=== PATIENT | male | born 1940 | race Caucasian/White ===

== ENCOUNTER → 2017-02-09 | Outpatient (CLI) | payer MEDICARE | LOC: CFH 11:40 | PROVIDERS: ATTEND Internal Medicine | DX: R53.83 Other fatigue (principal); R50.9 Fever, unspecified; M62.81 Muscle weakness (generalized); R63.4 Abnormal weight loss; R97.8 Other abnormal tumor markers | CPT/HCPCS: 71020 ==

== ENCOUNTER → 2017-02-23 | Outpatient (CLI) | payer MEDICARE | END | disposition home or self-care (01) | LOC: CFH 08:47 | PROVIDERS: ATTEND Internal Medicine | DX: E10.21 Type 1 diabetes mellitus with diabetic nephropathy (principal); E10.42 Type 1 diabetes mellitus with diabetic polyneuropathy; E10.65 Type 1 diabetes mellitus with hyperglycemia; M62.81 Muscle weakness (generalized); R97.8 Other abnormal tumor markers; E03.9 Hypothyroidism, unspecified; R50.9 Fever, unspecified; Z85.07 Personal history of malignant neoplasm of pancreas | CPT/HCPCS: 76700 ==

== ENCOUNTER → 2017-03-05 | Outpatient (CLI) | payer MEDICARE | LOC: PETCFH 08:59 | PROVIDERS: ATTEND Internal Medicine | DX: Z02.9 Encounter for administrative examinations, unspecified (principal) ==

== ENCOUNTER → 2017-03-05 | Outpatient (CLI) | payer MEDICARE | END | disposition home or self-care (01) | LOC: CFH 08:56 | PROVIDERS: ATTEND Internal Medicine | DX: R16.1 Splenomegaly, not elsewhere classified (principal); R91.1 Solitary pulmonary nodule; R53.83 Other fatigue; R79.89 Other specified abnormal findings of blood chemistry; Z85.07 Personal history of malignant neoplasm of pancreas | CPT/HCPCS: 74176 ==

== ENCOUNTER → 2017-03-12 | Outpatient (CLI) | payer MEDICARE ==
[~2017-03-12] MED LIST: ALLO100T30 PO; ERGO500017 PO; LEVO75TA5 PO; OMEP-110 PO; POTA10TA17 PO; SODI650T PO; TAMS0.4C2 PO; VIT1CAPS16 PO; VIT1TABL32 PO
== END | disposition home or self-care (01) ==
LOC: PETCFH 12:34
PROVIDERS: ATTEND Internal Medicine
DX: Z02.9 Encounter for administrative examinations, unspecified (principal)

== ENCOUNTER 2017-03-19 09:47 | Inpatient (IN) | payer MEDICARE ==
[~2017-03-19] VITALS: Ht 185.4 cm; Wt 68.2 kg
[2017-03-19] MEDS ORDERED: SODIUM CHLORIDE 0.9% 1,000ML IVBOLUS ONE (10:30)
[2017-03-19 10:43] LABS: BASOPHILS # (AUTO) 0.03 x10^3/uL (0-0.1); BASOPHILS % (AUTO) 1 % (0-1); EOSINOPHILS # (AUTO) 0.06 x10^3/uL (0-0.4); EOSINOPHILS % (AUTO) 1 % (1-7); LYMPHOCYTES # (AUTO) 0.62 x10^3/uL (1-3.4); LYMPHOCYTES % (AUTO) 11 % (22-44); MD NO; MEAN CORPUSCULAR HEMOGLOBIN 29.2 pg (27.5-34.5); MEAN CORPUSCULAR HGB CONC 32.6 g/dL (33.2-36.2); MEAN CORPUSCULAR VOLUME 89.6 fL (81-97); MEAN PLATELET VOLUME 8.4 fL (7.4-10.4); MONOCYTES # (AUTO) 0.36 x10^3/uL (0.2-0.8); MONOCYTES % (AUTO) 6 % (2-9); NEUTROPHILS # (AUTO) 4.78 x10^3/uL (1.8-6.8); NEUTROPHILS % (AUTO) 82 % (42-75); PLATELET COUNT 173 x10^3/uL (130-400); RED BLOOD COUNT 3.05 x10^6/uL (4.38-5.82); RED CELL DISTRIBUTION WIDTH 14.3 % (9.4-14.8)
[2017-03-19 10:55] LABS: ALANINE AMINOTRANSFERASE 19 U/L (12-78); ALBUMIN 1.8 g/dL (3.4-5.0); ANION GAP 9 mmol/L (5-15); CALCIUM 7.2 mg/dL (8.5-10.1); CHLORIDE 109 mmol/L (98-107); CREATININE 1.78 mg/dL (0.7-1.3)
[2017-03-19 10:58] LABS: ALKALINE PHOSPHATASE 96 U/L (45-117); BILIRUBIN,TOTAL 0.6 mg/dL (0.2-1.0); TOTAL PROTEIN 5.8 g/dL (6.4-8.2)
[2017-03-19 11:00] LABS: TROPONIN I < 0.015 ng/mL (0.000-0.045)
[2017-03-19] MEDS ORDERED: LEVO75TA5 PO (12:34)
[2017-03-19] MEDS ORDERED: ALLO100T30 PO (12:34)
[2017-03-19] MEDS ORDERED: TAMS0.4C2 PO (12:34)
[2017-03-19] MEDS ORDERED: ERGO500017 PO (12:34)
[2017-03-19] MEDS ORDERED: OMEP-110 PO (12:34)
[2017-03-19] MEDS ORDERED: POTA10TA17 PO (12:34)
[2017-03-19] MEDS ORDERED: VIT1CAPS16 PO (12:34)
[2017-03-19] MEDS ORDERED: VIT1TABL32 PO (12:34)
[2017-03-19] MEDS ORDERED: SODI650T PO (12:34)
[2017-03-19] MEDS ORDERED: CEFTRIAXONE PMX 1GM/50ML 50 ML IVPB ONE (14:00)
[2017-03-19] MEDS ORDERED: CEFTRIAXONE PMX 1GM/50ML 50 ML ONE (14:05)
[2017-03-19] MEDS ORDERED: ENOXAPARIN 40 MG/0.4 ML SQ SCH (14:30)
[2017-03-19] MEDS ORDERED: ONDANSETRON 2MG/ML, 2ML IVPush PRN (14:30)
[2017-03-19] MEDS ORDERED: ERGOCALCIFEROL 50,000 UNIT CAPSULE PO SCH (14:30)
[2017-03-19] MEDS ORDERED: ACETAMINOPHEN 325 MG TABLET PO PRN (14:30)
[2017-03-19] MEDS ORDERED: LACTATED RINGERS 1,000 ML IV SCH (14:30)
[2017-03-19] MEDS: LACTATED RINGERS 1,000 ML IV SCH (16:37)
[2017-03-19 20:00] VITALS: BP 106/62
[2017-03-19] MEDS: SODIUM BICARBONATE 650 MG TABLET PO SCH (21:00)
[2017-03-20 00:52] VITALS: BP 106/62
[2017-03-20] MEDS: SODIUM BICARBONATE 650 MG TABLET PO SCH ×4 (01:08→20:55)
[2017-03-20 01:23] LABS: MICROSCOPIC AUTO
[2017-03-20 01:26] LABS: CULTURE INDICATED? YES
[2017-03-20 01:31] VITALS: BP 114/68
[2017-03-20] MEDS: LACTATED RINGERS 1,000 ML IV SCH ×2 (04:02→20:56)
[2017-03-20 04:47] LABS: ALBUMIN 1.5 g/dL (3.4-5.0); ANION GAP 7 mmol/L (5-15); CALCIUM 6.8 mg/dL (8.5-10.1); CHLORIDE 110 mmol/L (98-107)
[2017-03-20 04:49] LABS: BASOPHILS # (AUTO) 0.01 x10^3/uL (0-0.1); BASOPHILS % (AUTO) 0 % (0-1); EOSINOPHILS # (AUTO) 0.07 x10^3/uL (0-0.4); EOSINOPHILS % (AUTO) 1 % (1-7); LYMPHOCYTES # (AUTO) 0.88 x10^3/uL (1-3.4); LYMPHOCYTES % (AUTO) 15 % (22-44); MD NO; MEAN CORPUSCULAR HEMOGLOBIN 29.5 pg (27.5-34.5); MEAN CORPUSCULAR VOLUME 89.3 fL (81-97); MEAN PLATELET VOLUME 8.4 fL (7.4-10.4); MONOCYTES # (AUTO) 0.34 x10^3/uL (0.2-0.8); MONOCYTES % (AUTO) 6 % (2-9); NEUTROPHILS % (AUTO) 78 % (42-75); PLATELET COUNT 160 x10^3/uL (130-400); RED BLOOD COUNT 2.63 x10^6/uL (4.38-5.82); RED CELL DISTRIBUTION WIDTH 14.6 % (9.4-14.8)
[2017-03-20 04:51] LABS: ALANINE AMINOTRANSFERASE 13 U/L (12-78); ALKALINE PHOSPHATASE 84 U/L (45-117); BILIRUBIN,TOTAL 0.4 mg/dL (0.2-1.0); CREATININE 1.64 mg/dL (0.7-1.3); TOTAL PROTEIN 4.9 g/dL (6.4-8.2)
[2017-03-20] MEDS ORDERED: SODIUM PHOSPHATE 20 MMOL in SODIUM CHLORIDE 0.9% 500 ML IV ONE (06:30)
[2017-03-20] MEDS ORDERED: MAGNESIUM SULFATE PMX 2GM/50ML 50 ML IV ONE (06:30)
[2017-03-20] MEDS: LEVOTHYROXINE 75 MCG TABLET PO SCH (06:31)
[2017-03-20 06:53] LABS: % IRON SATURATION 17 % (20-55); IRON LEVEL 15 mcg/dL (65-175); TOTAL IRON BINDING CAPACITY 88 mcg/dL (250-450)
[2017-03-20] MEDS ORDERED: INSULIN LISPRO 100 UNITS/ML, PEN SQ-INSULIN SCH ×2 (07:00)
[2017-03-20] MEDS: AMPICILLIN/SULBACTAM 3 GM in SODIUM CHLORIDE 0.9% 100 ML IV SCH ×3 (08:03→22:41)
[2017-03-20 08:24] VITALS: BP 104/61
[2017-03-20] MEDS ORDERED: [UNRECOGNIZED DRUG - OTHER] PO SCH (09:00)
[2017-03-20] MEDS ORDERED: ZNOX PO SCH (09:00)
[2017-03-20] MEDS ORDERED: VITE AC PO SCH (09:00)
[2017-03-20] MEDS ORDERED: VIT C PO SCH (09:00)
[2017-03-20] MEDS ORDERED: COPPER PO SCH (09:00)
[2017-03-20] MEDS ORDERED: LUT PO SCH (09:00)
[2017-03-20] MEDS: ALLOPURINOL 100 MG TABLET PO SCH (09:22)
[2017-03-20] MEDS: MULTIVITAMINS/MINERALS TABLET PO SCH (09:22)
[2017-03-20] MEDS: OMEPRAZOLE 20 MG CAPSULE.DR PO SCH (09:22)
[2017-03-20] MEDS: TAMSULOSIN 0.4 MG CAP.ER.24H PO SCH (09:22)
[2017-03-20] MEDS: INSULIN LISPRO 100 UNITS/ML, PEN SQ-INSULIN SCH ×4 (09:28→21:00)
[2017-03-20] MEDS: IRON SUCROSE COMPLEX 100MG/5ML IV SCH (11:10)
[2017-03-20] MEDS: ENOXAPARIN 40 MG/0.4 ML SQ SCH (15:05)
[2017-03-20 17:12] VITALS: BP 106/58
[2017-03-20 19:58] VITALS: BP 95/59
[2017-03-20] MEDS: INSULIN GLARGINE 100 UNITS/ML, PEN SQ-INSULIN SCH (21:00)
[2017-03-21 01:05] VITALS: BP 107/61
[2017-03-21 05:23] LABS: BASOPHILS # (AUTO) 0.02 x10^3/uL (0-0.1); BASOPHILS % (AUTO) 0 % (0-1); EOSINOPHILS # (AUTO) 0.07 x10^3/uL (0-0.4); EOSINOPHILS % (AUTO) 1 % (1-7); LYMPHOCYTES # (AUTO) 0.75 x10^3/uL (1-3.4); LYMPHOCYTES % (AUTO) 11 % (22-44); MD NO; MEAN CORPUSCULAR HEMOGLOBIN 29.4 pg (27.5-34.5); MEAN CORPUSCULAR HGB CONC 32.9 g/dL (33.2-36.2); MEAN CORPUSCULAR VOLUME 89.3 fL (81-97); MEAN PLATELET VOLUME 8.3 fL (7.4-10.4); MONOCYTES # (AUTO) 0.36 x10^3/uL (0.2-0.8); MONOCYTES % (AUTO) 5 % (2-9); NEUTROPHILS # (AUTO) 5.51 x10^3/uL (1.8-6.8); NEUTROPHILS % (AUTO) 82 % (42-75); PLATELET COUNT 166 x10^3/uL (130-400); RED BLOOD COUNT 2.76 x10^6/uL (4.38-5.82); RED CELL DISTRIBUTION WIDTH 14.6 % (9.4-14.8)
[2017-03-21 05:32] LABS: ANION GAP 8 mmol/L (5-15); CALCIUM 7.1 mg/dL (8.5-10.1); CHLORIDE 111 mmol/L (98-107)
[2017-03-21 05:33] LABS: CREATININE 1.43 mg/dL (0.7-1.3)
[2017-03-21] MEDS: AMPICILLIN/SULBACTAM 3 GM in SODIUM CHLORIDE 0.9% 100 ML IV SCH ×2 (06:09→14:30)
[2017-03-21] MEDS: LEVOTHYROXINE 75 MCG TABLET PO SCH (06:09)
[2017-03-21] MEDS: LACTATED RINGERS 1,000 ML IV SCH ×2 (06:09→14:30)
[2017-03-21] MEDS: INSULIN LISPRO 100 UNITS/ML, PEN SQ-INSULIN SCH ×2 (07:00→11:00)
[2017-03-21] MEDS: SODIUM BICARBONATE 650 MG TABLET PO SCH (08:31)
[2017-03-21] MEDS: ALLOPURINOL 100 MG TABLET PO SCH (08:31)
[2017-03-21] MEDS: TAMSULOSIN 0.4 MG CAP.ER.24H PO SCH (08:31)
[2017-03-21] MEDS: MULTIVITAMINS/MINERALS TABLET PO SCH (08:31)
[2017-03-21] MEDS: IRON SUCROSE COMPLEX 100MG/5ML IV SCH (08:31)
[2017-03-21] MEDS: INSULIN GLARGINE 100 UNITS/ML, PEN SQ-INSULIN SCH (08:58)
[2017-03-21] MEDS: OMEPRAZOLE 20 MG CAPSULE.DR PO SCH (08:58)
[2017-03-21 10:00] VITALS: BP 104/56
[2017-03-21] MEDS: ENOXAPARIN 40 MG/0.4 ML SQ SCH (14:30)
[2017-03-21 14:48] VITALS: BP 93/49
[2017-03-21 14:51] VITALS: BP 96/54
== END 2017-03-21 17:03 | disposition home or self-care (01) | DRG 682 ==
LOC: ED 13:06 → EDIP 13:31 → 3NW 19:37 → 3NE 03-20 11:15
PROVIDERS: ADMIT Internal Medicine; ATTEND Hospitalist
DX: N17.0 Acute kidney failure with tubular necrosis (principal); E43 Unspecified severe protein-calorie malnutrition; E87.2 Acidosis; E11.22 Type 2 diabetes mellitus with diabetic chronic kidney disease; C25.9 Malignant neoplasm of pancreas, unspecified; D50.9 Iron deficiency anemia, unspecified; Z68.1 Body mass index [BMI] 19.9 or less, adult; J98.4 Other disorders of lung; E03.9 Hypothyroidism, unspecified; M10.9 Gout, unspecified; H35.30 Unspecified macular degeneration; J32.0 Chronic maxillary sinusitis; K21.9 Gastro-esophageal reflux disease without esophagitis; N18.3 Chronic kidney disease, stage 3 (moderate); N40.0 Benign prostatic hyperplasia without lower urinary tract symptoms; Z23 Encounter for immunization; Z78.9 Other specified health status; Z79.4 Long term (current) use of insulin; Z85.07 Personal history of malignant neoplasm of pancreas; Z87.891 Personal history of nicotine dependence; Z90.411 Acquired partial absence of pancreas
CPT/HCPCS: 36415; 70450; 71045; 71260; 76700; 80048; 80053; 81001; 82962; 83540; 83550; 83605; 83735; 84100; 84145; 84484; 85025; 86480; 86850; 86900; 87040; 87077; 87086; 87186; 93005; 93306; 96360; J0295; J0696; J1650; J1756; J1815; J3475; J7030; J7040; J7120